=== PATIENT | male | born 1980 | race Caucasian/White ===

== ENCOUNTER → 2018-10-25 | Outpatient (REF) | payer BC, OTHER ==
[~2018-10-25] MED LIST: ANTIBIOTIC PO; AZELASTINE; CICLESONIDE; cleocin PO; lortab PO; tylenol PO
== END ==
LOC: M SMT 14:17
PROVIDERS: ATTEND Urology
DX: Z30.2 Encounter for sterilization (principal)

== ENCOUNTER → 2019-02-21 | Outpatient (REF) | payer OTHER ==
[2019-02-21 11:07] LABS: SEMEN APPEARANCE OPAQUE (OPAQUE); SEMEN VISCOSITY LIQUID (LIQUID); SEMEN VOLUME 2.7 ml (2.0-5.0)
[2019-02-21 11:08] LABS: SEMEN pH 8.5 (7.0-8.0); WBC CONCENTRATION >1 M/ml (<=1 M/ml)
== END ==
LOC: M SMT 10:53
PROVIDERS: ATTEND Urology
DX: Z30.2 Encounter for sterilization (principal)

== ENCOUNTER 2019-11-22 21:14 | Day surgery (SDC) | payer OTHER ==
[~2019-11-22] VITALS: Ht 172.7 cm; Wt 104.5 kg
[2019-11-22 22:03] LABS: BASO % 0.4 % (0.0-1.0); EOS # 0.2 10^3/uL (0.0-0.5); EOS % 1.9 % (0.0-3.0); HEMATOCRIT 43.2 % (42.0-52.0); HEMOGLOBIN 14.4 g/dl (13.5-17.5); LYMPH # 1.7 10^3/uL (1.5-5.0); LYMPH % 18.7 % (24.0-44.0); MEAN CORPUSCULAR HEMOGLOBIN 28.5 pg (27.0-33.0); MEAN CORPUSCULAR HGB CONC 33.3 g/dl (32.0-36.5); MEAN CORPUSCULAR VOLUME 85.5 fl (80.0-96.0); MONO # 0.7 10^3/uL (0.0-0.8); MONO % 7.7 % (0.0-5.0); NEUTROPHILS # 6.4 10^3/uL (1.5-8.5); NEUTROPHILS % 71.1 % (36.0-66.0); PLATELET COUNT, AUTOMATED 186 10^3/uL (150-450); RED BLOOD COUNT 5.05 10^6/uL (4.30-6.10)
[2019-11-22 22:33] LABS: ALBUMIN 3.8 GM/DL (3.2-5.2); ALT/SGPT 38 U/L (12-78); BILIRUBIN,DIRECT 0.2 MG/DL (0.0-0.2); BILIRUBIN,TOTAL 0.5 MG/DL (0.2-1.0); BLOOD UREA NITROGEN 14 MG/DL (7-18); CALCIUM LEVEL 9.1 MG/DL (8.5-10.1); CARBON DIOXIDE LEVEL 30 MEQ/L (21-32); CHLORIDE LEVEL 107 MEQ/L (98-107); CREATININE FOR GFR 0.97 MG/DL (0.70-1.30); GLOMERULAR FILTRATION RATE > 60.0 (>60); GLUCOSE, FASTING 108 MG/DL (70-100); LIPASE 153 U/L (73-393); POTASSIUM SERUM 3.8 MEQ/L (3.5-5.1); SODIUM LEVEL 143 MEQ/L (136-145); TOTAL PROTEIN 7.2 GM/DL (6.4-8.2)
[2019-11-22] MEDS ORDERED: ISOVUE-370 76% 100ML VIAL As Ordered ONE (23:51)
[2019-11-23] MEDS ORDERED: NS 1,000 ML IV ONE
--- NOTE | 2019-11-23 00:26 | REPVR ---
PROCEDURE INFORMATION: Exam: CT Abdomen And Pelvis With Contrast Exam date and time: 11/22/2019 12:11 AM Age: 39 years old Clinical indication: Abdominal pain; Localized; Right lower quadrant (rlq); Additional info: Rlq abd pain TECHNIQUE: Imaging protocol: Computed tomography of the abdomen and pelvis with intravenous contrast. Radiation optimization: All CT scans at this facility use at least one of these dose optimization techniques: automated exposure control; mA and/or kV adjustment per patient size (includes targeted exams where dose is matched to clinical indication); or iterative reconstruction. Contrast material: ISOVUE 370; Contrast volume: 100 ml; Contrast route: INTRAVENOUS (IV); COMPARISON: No relevant prior studies available. FINDINGS: Liver: Hepatomegaly. Gallbladder and bile ducts: Normal. No calcified stones. No ductal dilation. Pancreas: No ductal dilation. Circumscribed 11 mm hypodense lesion in the tail of the pancreas (Series 201, image 39). Spleen: Normal. No splenomegaly. Adrenals: Normal. No mass. 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 No hydronephrosis bilaterally. Stomach and bowel: Negative for colonic diverticulitis. Moderate stool in the colon. Negative for colonic diverticulitis. Appendix: Appendix measures 11 mm in thickness. Mild periappendiceal stranding. Intraperitoneal space: Unremarkable. No free air. No significant fluid collection. Vasculature: Unremarkable. No abdominal aortic aneurysm. Lymph nodes: Unremarkable. No enlarged lymph nodes. Bladder: Unremarkable as visualized. Reproductive: Prostate is normal in size. Bones/joints: Unremarkable. No acute fracture. Soft tissues: Unremarkable. IMPRESSION: 1. Acute appendicitis. 2. Doubtful for appendiceal perforation. 3. Ectopic position of the right kidney which is located in the right iliac fossa. 4. Hepatomegaly. 5. Circumscribed 11 mm hypodense lesion in the tail of the pancreas. Recommend reimage every 1 year for 5 years. (CIERA Millan et al. ACR White Paper, November 2016) Electronically signed by: Orion Lai On 11/23/2019 00:25:48 AM
[2019-11-23] MEDS ORDERED: diphenhydrAMINE 50MG/ML VIAL (J1200) IV STA (00:52)
[2019-11-23] MEDS ORDERED: MORPHINE 2 MG/ML 1ML VIAL (J2270) IV PRN (01:00)
[2019-11-23] MEDS ORDERED: KETOROLAC 30 MG/ML 1ML VIAL IV PRN (01:00)
[2019-11-23] MEDS ORDERED: ONDANSETRON 4MG/2ML VIAL IV PRN ×2 (01:00→13:00)
[2019-11-23] MEDS ORDERED: PERCOCET 5MG/325MG TAB PO PRN ×2 (01:00→13:00)
[2019-11-23] MEDS ORDERED: PIPERACILLIN/TAZOBACTAM SOD 3.375 GM in D5W MINI-BAG PLUS 50 ML IV ONE (01:00)
[2019-11-23] MEDS ORDERED: SILD20TA11 PO (01:01)
[2019-11-23] MEDS ORDERED: diphenhydrAMINE 50MG/ML VIAL (J1200) As Ordered ONE (01:09)
[2019-11-23] MEDS ORDERED: ZOSYN 3.375GM VIAL (J2543) As Ordered ONE (01:09)
[2019-11-23 04:16] VITALS: BP 112/70
[2019-11-23] MEDS: LR 1,000 ML IV SCH ×2 (04:31→14:01)
[2019-11-23] MEDS: CIPROFLOXACIN 400 MG in IV 1 EA IV SCH ×2 (04:32→15:14)
[2019-11-23] MEDS: metroNIDAZOLE 500 MG in IV 1 EA IV SCH ×2 (05:44→14:01)
[2019-11-23 09:16] VITALS: BP 120/70
[2019-11-23] MEDS ORDERED: propofoL 200 MG/20 ML VIAL As Ordered ONE (10:08)
[2019-11-23] MEDS ORDERED: LIDOCAINE 2% 100MG/5ML SDV (FOR ANES.) As Ordered ONE (10:08)
[2019-11-23] MEDS ORDERED: MIDAZOLAM INJ 2MG/2ML VIAL (J2250 PER 1MG) As Ordered ONE (10:09)
[2019-11-23] MEDS ORDERED: fentaNYL 100 MCG/2 ML INJECTION (J3010) As Ordered ONE ×2 (10:09→11:51)
[2019-11-23] MEDS ORDERED: dexameTHASONE 4 MG/ML 1ML VIAL (J1100 PER 1MG) As Ordered ONE (10:09)
[2019-11-23] MEDS ORDERED: ROCURONIUM BROMIDE 50 MG/5 ML VIAL As Ordered ONE (10:09)
[2019-11-23] MEDS ORDERED: ONDANSETRON 4MG/2ML VIAL As Ordered ONE (10:09)
--- NOTE | 2019-11-23 11:01 | HPEPDOC ---
General Surgery H&P Date of Admission Nov 23, 2019 Attending Physician: RADHA MAJOR MD History and Physical CHIEF COMPLAINT: abdominal pain HISTORY OF PRESENT ILLNESS: Patient is a healthy 39 M who presented to the emergency room last night with complaints of a 2 day history of ongoing right lower quadrant abdominal pain with nausea. He denies any fevers or chills, any sick contacts. He did have a normal bowel movement this morning. He presented himself to the emergency department and was evaluated. He had normal labs including normal W see. His CT abdomen and pelvis showing evidence for acute appendicitis. He was subsequently admitted by me overnight and scheduled for laparoscopic appendectomy and the morning ALLERGIES: Please see below. HOME MEDICATIONS: Please see below. PAST MEDICAL HISTORY: 1. Denies any chronic medical problems 2. Erectile dysfunction. PAST SURGICAL HISTORY: 1. sinus surgery 2. dental surgery 3. vasectomy. PERSONAL/SOCIAL HISTORY: denies smoking, occasional alcohol intake. REVIEW OF SYSTEMS: GENERAL: Denies chills, fatigue, fever, weight gain and weight loss. HEENT: Denies blurred vision and double vision. Denies ear symptoms. Denies hoarseness. NECK: Denies any neck pain. CARDIOVASCULAR: Denies chest pain and palpitations. MUSCULOSKELETAL: Denies arthralgias, back pain and thrombophlebitis. SKIN: Denies rash. NEUROLOGIC: Denies headache, stroke and transient ischemic attack. PSYCHIATRIC: Denies anxiety and depression. ENDOCRINE: Denies thyroid disease. HEMATOLOGY/ONCOLOGY: Denies any bleeding or clotting disorder. HEART: Denies any chest pains, palpitations, paroxysmal dyspnea, orthopnea. PULMONARY: Denies chronic cough, dyspnea and wheezing. GASTROINTESTINAL: Denies rectal bleeding, family history of colon cancer, constipation, diarrhea, dysphagia, heartburn and jaundice. GENITOURINARY: Denies dysuria, frequency, hematuria and nocturia. ENDOCRINE: Denies polydipsia, polyphagia, polyuria, heat or cold intolerance. INFECTIOUS: Denies any recent upper respiratory tract infection, UTI, need for use of antibiotics. NUTRITION: Reports good appetite. PHYSICAL EXAMINATION: VITAL SIGNS: Please see below. GENERAL APPEARANCE: Patient seen at bedside, appears comfortable. Awake, alert, oriented. HEENT: Normocephalic, atraumatic. [place] palpebral conjunctivae. Anicteric sclerae. Lips moist. CHEST: No chest wall abnormalities. Normal respiratory motion/effort. NECK: Supple. No thyromegaly. No lymphadenopathies. LUNGS: Lung sounds are clear to auscultation bilaterally. No wheezing appreciated. HEART: No chest wall abnormalities. Heart rate and rhythm are regular with no murmurs. ABDOMEN: Abdomen is obese, soft, slightly rounded. No hepatosplenomegaly. No umbilical or groin herniations, nondistended. No noticeable rebound or guarding. No grimacing with palpation. No rebound tenderness. No masses appreciated. SKIN: Warm, moist. EXTREMITIES: Extremities have no deformities. No edema identified. NEUROLOGICAL: . ANCILLARIES: . LABORATORY DATA: Please see below. MICROBIOLOGY: Please see below. IMAGING: . Acute appendicitis with localized peritonitis His symptoms are consistent with acute appendicitis. His labs are unremarkable, not showing any severe signs of systemic inflammatory response to this, and CT looks to be noncomplicated acute appendicitis. We spoke about the plan for performing laparoscopic appendectomy and I discussed with him the details of the procedure, risks, and benefits. He has a documented allergy to PCN but did ok with zosyn last night. I placed him on ciprofloxacin and flagyl while awaiting OR. We will proceed with laparoscopic appendectomy. Vital Signs Vital Signs Date Time Temp Pulse Resp B/P (MAP) Pulse Ox O2 Delivery O2 Flow Rate FiO2 11/23/19 09:16 98.3 65 16 120/70 (87) 97 Room Air I&Os I&O- Last 24 Hours up to 6 AM 11/23/19 06:00 Intake Total 1450 ml Output Total 0 ml Balance 1450 ml Laboratory Data Labs 24H Laboratory Tests 2 11/22/19 21:25: Immature Granulocyte % (Auto) 0.2, Neutrophils (%) (Auto) 71.1H, Lymphocytes (%) (Auto) 18.7L, Monocytes (%) (Auto) 7.7H, Eosinophils (%) (Auto) 1.9, Basophils (%) (Auto) 0.4, Neutrophils # (Auto) 6.4, Lymphocytes # (Auto) 1.7, Monocytes # (Auto) 0.7, Eosinophils # (Auto) 0.2, Basophils # (Auto) 0.0, Nucleated Red Blood Cells % (auto) 0.0, Anion Gap 6L, Glomerular Filtration Rate > 60.0, Calcium Level 9.1, Total Bilirubin 0.5, Direct Bilirubin 0.2, Aspartate Amino Transf (AST/SGOT) 20, Alanine Aminotransferase (ALT/SGPT) 38, Alkaline Phosphatase 88, Total Protein 7.2, Albumin 3.8, Albumin/Globulin Ratio 1.1, Lipase 153 11/22/19 21:39: Urine Color YELLOW, Urine Appearance CLEAR, Urine pH 6.0, Urine Specific [place] 1.016, Urine Protein NEGATIVE, Urine Glucose (UA) NEGATIVE, Urine Ketones NEGATIVE, Urine Blood NEGATIVE, Urine Nitrite NEGATIVE, Urine Bilirubin NEGATIVE, Urine Urobilinogen 0.2, Urine Leukocyte Esterase NEGATIVE, Urine WBC (Auto) 0, Urine RBC (Auto) 1, Urine Hyaline Casts (Auto) 0, Urine Bacteria (Auto) NEGATIVE, Urine Squamous Epithelial Cells 0, Urine Sperm (Auto) CBC/BMP Laboratory Tests 11/22/19 21:25 Microbiology Microbiology 11/23/19 Respiratory Virus Panel (PCR) (PEG) - Final, Complete Home Medications Scheduled PRN Oxycodone/Acetaminophen (Oxycodone-Acetaminophen 5-325) 1 Each Tablet, 1 TAB PO Q6HP PRN for MILD/MODERATE PAIN (PS 1-7) Sildenafil Citrate (Sildenafil Citrate) 20 Mg Tablet, 40 MG PO ASDIRECTED PRN for ERECTILE DYSFUNCTION, (Reported) Allergies Coded Allergies: Penicillins (Verified Allergy, Unknown, 11/22/19) A-FIB/CHADSVASC A-FIB History Current/History of A-Fib/PAF?: No Current PO Anticoag Therapy: RADHA Fong MD Nov 23, 2019 11:01
[2019-11-23] MEDS ORDERED: LIDOCAINE 1% SDV 30ML VIAL As Ordered ONE (11:10)
[2019-11-23] MEDS ORDERED: BUPIVACAINE HCL 0.25% 30ML VIAL As Ordered ONE (11:10)
[2019-11-23] MEDS ORDERED: KETOROLAC 60MG 2ML VIAL As Ordered ONE (11:49)
[2019-11-23] MEDS ORDERED: ACETAMINOPHEN 1000MG 100ML IV BTL (OFIRMEV) (J0131 PER 10MG) As Ordered ONE (11:50)
[2019-11-23] MEDS ORDERED: SUGAMMADEX SODIUM 500 MG/5 ML VIAL (BRIDION) As Ordered ONE (11:54)
[2019-11-23] MEDS ORDERED: METOCLOPRAMIDE INJ 10MG/2ML VIAL (J2765 PER 1) IV PRN (13:00)
[2019-11-23] MEDS ORDERED: LR 1,000 ML IV SCH (13:00)
[2019-11-23] MEDS ORDERED: fentaNYL 100 MCG/2 ML INJECTION (J3010) IV PRN (13:00)
[2019-11-23 13:37] VITALS: BP 117/69
[2019-11-23 14:18] VITALS: BP 115/70
[2019-11-23 15:24] VITALS: BP 112/64
[2019-11-23 16:18] VITALS: BP 114/66
[2019-11-23] MEDS ORDERED: PERCOCET PO (17:34)
--- NOTE | 2019-11-24 13:45 | ROOPDOC ---
[facility] Report Of Operation Report of Operation DATE OF PROCEDURE: 11/23/19 PREPROCEDURE DIAGNOSES: acute appendicitis. POSTPROCEDURE DIAGNOSES: Acute Appendicitis. PROCEDURE: Laparoscopic Appendectomy. SURGEON: Armin Mcpherson MD SANITARY AIDE: ANESTHESIA: General Anesthesia. ESTIMATED BLOOD LOSS: Approximately 10 mL. COMPLICATIONS: none. REMARKS: Healthy 39 M with 2 day history of right lower quadrant abdominal pain found to have acute appendicitis on workup in the ER. PROCEDURE NOTE: dialted, thickened appendix throughout its course, slight retrocecal course, very inflamed and shortened mesoappendix.No gross perforation. DESCRIPTION OF PROCEDURE: Patient has been given a dose of Zosyn perioperatively.Patient was brought to the operating room, placed supine on the table. Sequential compression device placed for DVT prophylaxis. General endotracheal anesthesia started. The abdomen prepped and draped in usual sterile fashion. After a surgical timeout, we began our surgery Entry into the abdomen done through an incision at the top of the umbilicus. Veress needle inserted on a controlled fashion. Intra-abdominal placement confirmed with saline drop technique. CO2 insufflation started to a pressure of 15 mmHg. Using the same incision a 5 mm port was placed under direct vision of laparoscope. Insertion site was inspected for injury and none was found. He was placed on a Trendelenburg position the right side tilted to about 30 to allow for better visualization of the appendix. 2 5 mm working ports were placed at the suprapubic area and left lower quadrant area under direct vision, an 8 mm port exchanged at the umbilical camera port site. Operative findings: The appendix is noted tensely distended, thickened, has a slight retrocecal course. The mesentery some thickened. No gross perforation. Small amount of slightly murky fluid basing the appendix in the right lower quadrant The appendix was grasped to pull the base of the appendix into view. The mesoappendix was divided using Harmonic scalpel down to the base. Two PDS Endoloops were placed to ligate the appendix at its base then divided with a Harmonic Scalpel the stump cauterized. Stump appears healthy. Appendix was then delivered into an Endo Catch bag through the 8 mm umbilical port site. . After re-insufflation the surgical site was inspected for hemostasis, the visualized fluid collections irrigated and suctioned off until clear return. Surrounding areas of the abdomen and inspected for fluid collections or signs of injury. The abdomen was deflated. All ports removed. The umbilical fascial defect repaired with 0 Vicryl in a mattress fashion. All skin incisions closed with 4-0 Monocryl in a subcuticular fashion. Steri-Strips and gauze dressing used for wound coverage. Patient was promptly awake and extubated and brought to recovery room stable. All counts of sponges and instruments verified to be correct. ARMIN MCPHERSON MD Nov 24, 2019 13:45
== END 2019-11-23 18:10 | disposition home or self-care (01) ==
LOC: M ED 21:14 → M SDC 21:15 → ENRESERV 11-23 02:37 → M MS5PR 11-23 04:08 → M SDC 11-23 18:10
PROVIDERS: ATTEND Surgery
DX: K35.890 Other acute appendicitis without perforation or gangrene (principal); Z88.0 Allergy status to penicillin; Z79.899 Other long term (current) drug therapy; N52.9 Male erectile dysfunction, unspecified
CPT/HCPCS: 44970; 74177; 80048; 80076; 81001; 83690; 85025; 87486; 87581; 87633; 87798; 88304; 96361; 96365; 96366; 96375; 99284; J0131; J0744; J1100; J1200; J1885; J2250; J2405; J2543; J3010; Q9967

== ENCOUNTER → 2020-06-10 | Outpatient (REF) | payer OTHER ==
[~2020-06-10] MED LIST changes: +PERCOCET PO; +SILD20TA11 PO
== END ==
LOC: M LAB REF 15:42
PROVIDERS: ATTEND Physician Assistant
DX: J02.9 Acute pharyngitis, unspecified (principal)